=== PATIENT | female | born 1945 | race Caucasian/White ===

== ENCOUNTER → 2017-05-05 | Outpatient (CLI) | payer MEDICARE, BC ==
[~2017-05-05] MED LIST: ACET-2031 PO; ASPI-757 PO; ASPI-760 PO; ASPI81TA94 PO; HYDR-389 PO; IBUP200C71 PO; META-1 PO; METO-1 PO; METO-253 PO; METO50TA19 PO; RIV10 PO; SIMV-42 PO; SIMV-49 PO
[2017-05-05 09:52] LABS: PLATELET COUNT, AUTOMATED 258 K/uL (150-450)
[2017-05-05 10:04] LABS: LDL CHOLESTEROL 76 mg/dl
== END ==
LOC: LAB 09:33
PROVIDERS: ATTEND Internal Medicine
DX: I25.10 Atherosclerotic heart disease of native coronary artery without angina pectoris (principal); J44.9 Chronic obstructive pulmonary disease, unspecified; G47.33 Obstructive sleep apnea (adult) (pediatric)
CPT/HCPCS: 36415; 81001; 82040; 82247; 82310; 82374; 82435; 82465; 82565; 82947; 83718; 84075; 84132; 84155; 84295; 84443; 84450; 84460; 84478; 84520; 85025

== ENCOUNTER → 2017-05-15 | Outpatient (CLI) | payer MEDICARE, BC ==
[~2017-05-15] MED LIST changes: +DIPH0.5D12 IM
== END ==
LOC: RESP 01:52
PROVIDERS: ATTEND Emergency Medicine
DX: J98.4 Other disorders of lung (principal)
CPT/HCPCS: 94060; 94726; 94729

== ENCOUNTER → 2017-05-16 | Outpatient (CLI) | payer MEDICARE, BC ==
--- NOTE | 2017-05-16 09:39 | RADIOLOGY IMAGING REPORT ---
FACILITY: [facility] - [place] PATIENT NAME: Aide Robbins : 1945 MR: [id number] V: [id number] EXAM DATE: ORDERING PHYSICIAN: AZALIA PAULINO TECHNOLOGIST: Location: [facility] Patient: Aide Robbins : 1945 Visit/Account:[id number] Date of Sevice: 05/16/2017 DEXA Scan Clinical history: Osteopenia. Comparison: DEXA scan from 04/01/2012. LUMBAR SPINE: The bone mineral density (BMD) measured from L2-L4 correlates with a Z-score 0.4 and a T-score of -0 .7 which is normal as defined by the World Health Organization. The corresponding risk of fracture i n the lumbar spine is not increased compared with a young adult reference population. This value has decreased by 10.5 % since the prior study. More than 5% change is considered significant. HIP: Bone mineral density (BMD) measured in the Left total hip region correlates with a Z-score -0.8 and a T-score of -2.1 which is osteoporosis as defined by the World Health Organization. The correspond ing risk of fracture in the hip is increased compared with a young adult reference population. The to erwin hip value has decreased by 0.9 % since the prior study. More than 5% change is considered signif icant. Bone mineral density (BMD) measured in the Femoral Neck region measures 0.770 g/cm2. IMPRESSION: 1. Lumbar spine: Normal. There has been decrease in the bone mineral density since the previous exa m. 2. Left total hip region: Osteopenia. There has been decreased in the bone mineral density of the t otal hip since the previous exam. 3. Femoral Neck: Bone Mineral Density is 0.770 g/cm2 The next DEXA scan of this patient should include the following sites: L1-L4 and the left hip. FRAX? WHO Fracture Risk Assessment Tool link: <http://www.shef.ac.uk/FRAX/tool.jsp?locationValue=9> PLEASE NOTE: 1) The World Health Organization defines low BMD as follows: T-score Normal > -1 Osteopenia < -1 and > -2.5 Osteoporosis < -2.5 without fractures Established osteoporosis < -2.5 with fractures 2) In general, you may wish to consider: Diagnosis Treatment Follow-up DEXA Normal BMD Prevention 2-3 years Osteopenia Prevention/therapy 1-2 years Osteoporosis Therapy Yearly 3) Fracture risk estimated from the T-score is more accurate for vertebral fractures (often spontane ous) than for hip fractures. Report Dictated By: Calderon Sullivan at 05/16/2017 9:30 AM Report E-Signed By: Calderon Sullivan at 05/16/2017 9:34 AM WSN:[id number]
--- NOTE | 2017-05-16 11:50 | RADIOLOGY IMAGING REPORT ---
FACILITY: [facility] - [place] PATIENT NAME: KAROLYN CERVANTES : [id number] MR: [id number] V: [id number] EXAM DATE: [id number] ORDERING PHYSICIAN: AZALIA PAULINO TECHNOLOGIST: Jayashree Kothari PROCEDURE:BILATERAL DIGITAL SCREENING MAMMOGRAM WITH CAD ASSISTED INTERPRETATION & 3D TOMOSYNTHESIS COMPARISON:Prior mammograms 05/17/15, 12/18/11, 11/30/10. INDICATIONS:screening FINDINGS: Small amount of fibroglandular tissue is seen throughout the breasts. The parenchymal pattern has remained stable allowing for difference in mammographic technique & patient positioning. There is no evidence of malignant appearing mass, malignant appearing calcifications or other secondary sign of malignancy in either breast. A surgical clip is again seen in the upper medial portion of the Right breast. DIAGNOSTIC CATEGORY 2--BENIGN FINDING. RECOMMENDATIONS: ROUTINE MAMMOGRAM AND CLINICAL EVALUATION. IMPRESSION: BIRADS 2: Benign finding No significant abnormality is seen. Dictated by: Maribell Sears M.D. on 05/16/2017 at 9:57 Transcribed by: ZEENAT on 05/16/2017 at 10:08 Approved by: Maribell Seasr M.D. on 05/16/2017 at 11:48 [facility]
== END ==
LOC: MAMO 04:33
PROVIDERS: ATTEND Emergency Medicine
DX: Z13.820 Encounter for screening for osteoporosis (principal); Z12.31 Encounter for screening mammogram for malignant neoplasm of breast; M85.88 Other specified disorders of bone density and structure, other site
CPT/HCPCS: 77063; 77067; 77080

== ENCOUNTER → 2017-05-28 | Outpatient (CLI) | payer MEDICARE, BC ==
[~2017-05-28] MED LIST changes: +ATOR40TA24 PO; +CHOL500045 PO; +TIO18R INH
== END ==
LOC: LAB 10:08
PROVIDERS: ATTEND Emergency Medicine
DX: M85.80 Other specified disorders of bone density and structure, unspecified site (principal)
CPT/HCPCS: 36415; 82306; 82310; 83970

== ENCOUNTER → 2017-08-27 | Outpatient (CLI) | payer MEDICARE, BC ==
[~2017-08-27] MED LIST changes: +IBUP-136 PO; -IBUP200C71 PO; +PNEU0.5D3 IM; +UMEC62.5 INH
[2017-08-27 12:08] LABS: PLATELET COUNT, AUTOMATED 239 K/uL (150-450)
== END ==
LOC: LAB 11:27
PROVIDERS: ATTEND Emergency Medicine
DX: E55.9 Vitamin D deficiency, unspecified (principal); D75.1 Secondary polycythemia; E78.5 Hyperlipidemia, unspecified
CPT/HCPCS: 36415; 82306; 82310; 82465; 83718; 83970; 84478; 85025

== ENCOUNTER → 2017-09-23 | Outpatient (CLI) | payer MEDICARE, BC ==
[~2017-09-23] MED LIST changes: +DEN60I SUBQ
== END ==
LOC: LAB 15:19
PROVIDERS: ATTEND Surgery
DX: L98.9 Disorder of the skin and subcutaneous tissue, unspecified (principal)
CPT/HCPCS: 88305

== ENCOUNTER 2017-11-17 09:00 | Outpatient (RCR) | payer MEDICARE, BC ==
--- NOTE | 2017-09-03 14:46 | PT INITIAL EVALUATION ---
MEDICAL DIAGNOSIS: R10.31 R groin pain TREATMENT DIAGNOSIS: Same, M76.11 R psoas tendinitis, M54.5 LBP/loin pain DATE OF ONSET: 12/27/12 SUBJECTIVE: Aide Robbins presents to PT for anterior R hip pain with hip flexion -type activities. She sustained a femoral fracture 12/27/12 in a fall [place], had a r hemiarthroplasty the next day. She reports since her fall, that she's had this occasional anterior hip pain while her surgery site was pain free. Pain location is R anterior hip at the inguinal ligament and described as intermittent ache. Pain scale is 0 sometimes, 8/10, with car transfers, squatting, golf, walking on hard surfaces and better with heat, stretching. REHAB PROBLEM LIST: Increased Pain Decreased ROM Decreased Strength Decreased Function Decreased Mobility Decreased Gait PREVIOUS MEDICAL HISTORY: 2000 02 stent, COPD, skin cancer. OCCUPATION: Retired. Golfs, independent in all ADL's. Aide reports that this hip pain limits her social life due to concerns for it's sudden onset in public. OBJECTIVE: Posture: Inferior R pubis, posterior R ilium, anterior L ilium, mild L lumbar scoliosis. ROM: R hip PROM IR 50 deg, ER 30 deg. at 90 deg. flexion, flexion 110 degrees, adduction 40 deg., tight IT band, extension -10 deg from neutral. Lumbar AROM flexion WNL with L lumbar scoliosis following L long leg (1/2" longer, pelvis leveled). Strength: G. medius 4+/5, adductors 4+/5, G. max 4/5, hip flexors 4+/5 (painful) , quad 5-/5, hamstrings 5-/5, ankle DF 5/5. Palpation: Painful R psoas tendon at the lesser trochanter. Special Tests: Positive Etienne test for tight hip flexors, negative scour, SLR. DTR's quads and Achilles tendons 2/3 B. Mobility: Hypomobile R hip posterior and lateral capsule. Gait: Long L LE, no R pelvic WS in R stance, shorter L step length. ASSESSMENT: Aide Robbins presents with L hip flexor tendinitis from knocking her pelvis out of alignment, probably in her fall [id number], as the pubic symphysis disc is so strong it takes trauma to shift the pubic rami. As this is the pelvis, I expect her lumbar region will start to have pain as she adjusts to her new posture, and so I will include lumbar treatment in her PT care. She had improved alignment, less hip flexor pain and improved gait after manual therapy. She's started on a hip, lumbar HEP. Short Term Goals One month: Aide golfs with R psoas pain 5-6/10 at most. Two months: Aide socializes without worrying about R hip flexor pain. Three months: No R psoas pain with all ADL's, hip FOTO <19% impairment. Patient's Goals Socialize without worrying about R psoas pain. PLAN: Patient to be seen for Manual Therapy, Strengthening/condition, Ice/Heat , Range of Motion, Spinal Stabilization, Stretching, Neuromuscular Re-ed, Electrical Stim, Posture/Body mechanics, Gait Trg/Balance Trg, Home Exercise Program 2x/Week for 3 months Thank you for this referral. If you have any questions, comments, or concerns about this report or plan, please contact me at . MTDD
--- NOTE | 2017-10-06 15:00 | PT PLAN OF CARE ---
Physician: Dr. Melani Perez Patient is being seen: 2x/week Therapist: Linsey Vasquez, PT Medical Diagnosis: R10.31 R groin pain Treatment Diagnosis: Same, M76.11 R psoas tendinitis, M54.5 LBP/loin pain Date of Onset: 12/27/12 Date of Initial Evaluation: 09/03/17 Date patient was last seen: 10/06/17 Number of treatments: 10 Number of cancellations/No shows: 0 INTERVENTIONS: Manual Therapy, Strengthening, Range of Motion, Spinal Stabilization, Stretching, Home Exercise Program GOALS: One month: Aide golfs with R psoas pain 5-6/10 at most. Progressing, 4 holes, no pain Two months: Aide socializes without worrying about R hip flexor pain (met). Three months: No R psoas pain with all ADL's (progressing), hip FOTO <19% impairment (met, 0%). PATIENT'S GOAL: Socialize without worrying about R psoas pain (met). Patient Compliance: Excellent Prognosis: Excellent Reasons for continuing therapy: S: Aide denies R anterior hip, groin pain with ADL's and states she's able to socialize without concern for R hip pain. Hip FOTO 0%. Aide has only played 4 hoes of golf. She stands 5 minutes doing dishes because of R hip tightness. Posture: Even PSIS supine, mild lumbar scoliosis. ROM: R hip PROM IR 50 deg, ER 40 deg. at 90 deg. flexion, flexion 130 degrees, adduction 40 deg., less tight IT band, extension 0 deg from neutral. Lumbar AROM flexion WNL with L lumbar scoliosis following L long leg (1/2" longer, pelvis leveled). Strength: R hip abductors 4/5, adductors 3+/5. Palpation: Painful R psoas tendon at the lesser trochanter. Special Tests: Still positive Etienne test for tight hip flexors, negative Demetrio' s test for IT band tightness. Mobility: Normal R hip joint mobility. A/P: Aide Robbins is improving flexibility, hip and core strength, but continues to have hip flexors tightness. She needs to improve flexibility and strength for golf and standing endurance. If you agree, we'll continue PT at 2x/ week through October to goals set. Thank you. CHIN
--- NOTE | 2017-11-17 09:56 | PT PLAN OF CARE ---
Physician: Dr. Melani Perez Patient is being seen: 2x/week Therapist: Linsey Vasquez, PT Medical Diagnosis: R10.31 R groin pain Treatment Diagnosis: Same, M76.11 R psoas tendinitis, M54.5 LBP/loin pain Date of Onset: 12/27/12 Date of Initial Evaluation: 09/03/17 Date patient was last seen: 11/17/17 Number of treatments: 20 Number of cancellations/No shows: 0 INTERVENTIONS: Strengthening/condition, Range of Motion/Stretching, Heat, Home Exercise Program GOALS: One month: Aide golfs with R psoas pain 5-6/10 at most. met Two months: Aide socializes without worrying about R hip flexor pain. met Three months: No R psoas pain with all ADL's, hip FOTO <19% impairment. both met PATIENT'S GOAL: Socialize without worrying about R psoas pain. met Patient Compliance: Excellent Prognosis: Excellent Reasons for discontinuing therapy: S: Aide relates she traveled 5 hours in a car ride, stood up to an hour without R hip pain. She hasn't golfed more than 4 holes of golf but is walking a lot, no hip pain Posture: Even PSIS, mild L lumbar scoliosis. ROM: R hip PROM WNL Strength: R hip abductors, adductors 5/5. Gait: Gait speed 2.9 feet/second, even stride, O2 on room air 84-91%, recovers with pursed lip breathing to 88-90%. Special Tests: Negative Etienne and Demetrio's tests. A/P: Aide Robbins has improved flexibility, strength and gait to alleviate R hip pain. She's chosen to do our self-pay gym graduate program for a month. I gave her literature on our pulmonary rehab program. I'll DC PT, goals met. Thank you. CHIN
== END 2017-11-17 18:00 | disposition home or self-care (01) ==
LOC: PT 09:00
PROVIDERS: ATTEND Emergency Medicine
DX: R10.31 Right lower quadrant pain (principal); M76.11 Psoas tendinitis, right hip; M54.5 Low back pain; J44.9 Chronic obstructive pulmonary disease, unspecified; Z95.5 Presence of coronary angioplasty implant and graft
CPT/HCPCS: 97161